=== PATIENT | male | born 1990 | race African-American/Black ===

== ENCOUNTER 2022-08-13 07:33 | Emergency (ER) | payer SELFPAY ==
[~2022-08-13] VITALS: Ht 180.3 cm; Wt 62.0 kg
[2022-08-13 08:13] VITALS: BP 125/83
== END 2022-08-13 11:01 | disposition home or self-care (01) ==
LOC: ER 07:33
DX: Z04.89 Encounter for examination and observation for other specified reasons (principal); F20.9 Schizophrenia, unspecified; Z59.00 Homelessness unspecified
CPT/HCPCS: 99281